=== PATIENT | male | born 1985 | race Caucasian/White ===

== ENCOUNTER 2017-04-15 20:03 | Emergency (ER) | payer OTHER ==
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
--- NOTE | 2017-04-15 21:21 | ED CLINICAL REPORT ---
Clinical Report - Physicians/Mid Levels [facility] [address] [place] [address] 04/15/2017 20:05 Patient: MADI DRISCOLL Time Seen: 20:32; initial patient contact, initial documentation, patient care assumed. Arrived- By private vehicle. Historian- patient. HISTORY OF PRESENT ILLNESS Chief Complaint: HEMORRHOIDS. This started several weeks ago and is still present but is better now. The patient has had rectal pain, constipation and hard stools but not had dark stools. He has had mild rectal bleeding described as bright red blood on toilet paper and blood streaks on stool. No nausea, vomiting, diarrhea or abdominal pain. (hemorrhoids better now after several days of using otc med, but bleeding hasn't stopped, today, wiped and again saw large amount of bright red blood on tissue, called his dr, has appt for 1 week, went to walk in clinic, but they wouldn't see him because of his insurance so he came here, the blood scared him). No recent travel. No known contact with a sick individual. Similar symptoms previously: Frequently, worse. Recent medical care: Not recently seen/assessed. REVIEW OF SYSTEMS No dizziness, weakness, fever, difficulty breathing or chest pain. No complaint of rectal foreign body. He has had no rectal intercourse. All systems otherwise negative, except as recorded above. PAST HISTORY See nurses notes. PROBLEMS: ADHD - Attention Deficit Hyperactivity Disorder. --20:36 Kiera Knowles, RRoman. ADDITIONAL SURGERIES: no known surgeries. SOCIAL HISTORY Never smoker. Occasional alcohol use. No drug use. No recent travel. FAMILY HISTORY Negative. ADDITIONAL NOTES The nursing notes have been reviewed with agreement regarding the chief complaint, HPI, ROS, PMH and patient medications and allergies. PHYSICAL EXAM Vital Signs: 04/15/2017 20:32 BP: 125/75. HR: 67. RR: 15. O2 saturation: 98%. Temp: 98.6 F. Pain level now: 6/10. Have been reviewed as normal and appear to be correct. Appearance: Alert. Oriented X3. No acute distress. Eyes: Pupils equal, round and reactive to light. Eyes normal inspection. Neck: Normal inspection. Neck supple. CVS: Normal heart rate and rhythm. Heart sounds normal. Pulses normal. Respiratory: No respiratory distress. Breath sounds normal. Abdomen: Soft and nontender. Bowel sounds normal. No organomegaly. No mass. Back: Normal inspection. Rectal: External hemorrhoids (deflated). Rectal exam normal and nontender. Stool heme negative; hemoccult quality management coordinator check passed. (POC test reference range: negative). Skin: Skin warm and dry. Normal skin color. No rash. Normal skin turgor. Extremities: Extremities exhibit normal ROM. No lower extremity edema. Neuro: Oriented X 3. No motor deficit. No sensory deficit. PROGRESS AND PROCEDURES Patient counseled in person regarding the patient's stable condition and diagnosis. Differential Diagnosis: Other possible considerations: hemorrhoids, gi bleed, fistula, abscess. Above considerations are based on history and physical exam. Differential diagnosis was discussed with patient. Disposition: Discharged home in good and unchanged condition (21:21). Condition: good and stable. CLINICAL IMPRESSION Prolapsed external hemorrhoids INSTRUCTIONS Do not work today. Warnings: GENERAL WARNINGS: Return or contact your physician immediately if your condition worsens or changes unexpectedly, if not improving as expected, or if other problems arise. Specifically return if problem worsens. Prescription Medications: Miralax: take 1 measuring cupful supplied (1 heaping tablespoon) mixed in 8 ounces liquid daily as needed for constipation. Dispense fourteen (14) ounce bottle. No refill. Substitution is permissible. Proctofoam HC: Insert one applicator full into the rectum every 12 hours as needed for pain, itching and irritation. Dispense one (1) cannister. No refills. Substitution is permissible. Follow-up: Follow up with your doctor in about one week as scheduled even if well. Summary of care provided to patient. Understanding of the discharge instructions verbalized by patient. (Electronically signed by Rajani Coley A.R.N.P. 04/15/2017 23:27)
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
--- NOTE | 2017-04-15 21:21 | ED CLINICAL REPORT ---
Clinical Report - Physicians/Mid Levels [facility] [address] [place] [address] 04/15/2017 20:05 Patient: MADI DRISCOLL Time Seen: 20:32; initial patient contact, initial documentation, patient care assumed. Arrived- By private vehicle. Historian- patient. HISTORY OF PRESENT ILLNESS Chief Complaint: HEMORRHOIDS. This started several weeks ago and is still present but is better now. The patient has had rectal pain, constipation and hard stools but not had dark stools. He has had mild rectal bleeding described as bright red blood on toilet paper and blood streaks on stool. No nausea, vomiting, diarrhea or abdominal pain. (hemorrhoids better now after several days of using otc med, but bleeding hasn't stopped, today, wiped and again saw large amount of bright red blood on tissue, called his dr, has appt for 1 week, went to walk in clinic, but they wouldn't see him because of his insurance so he came here, the blood scared him). No recent travel. No known contact with a sick individual. Similar symptoms previously: Frequently, worse. Recent medical care: Not recently seen/assessed. REVIEW OF SYSTEMS No dizziness, weakness, fever, difficulty breathing or chest pain. No complaint of rectal foreign body. He has had no rectal intercourse. All systems otherwise negative, except as recorded above. PAST HISTORY See nurses notes. PROBLEMS: ADHD - Attention Deficit Hyperactivity Disorder. --20:36 Kiera Knowles, RRoman. ADDITIONAL SURGERIES: no known surgeries. SOCIAL HISTORY Never smoker. Occasional alcohol use. No drug use. No recent travel. FAMILY HISTORY Negative. ADDITIONAL NOTES The nursing notes have been reviewed with agreement regarding the chief complaint, HPI, ROS, PMH and patient medications and allergies. PHYSICAL EXAM Vital Signs: 04/15/2017 20:32 BP: 125/75. HR: 67. RR: 15. O2 saturation: 98%. Temp: 98.6 F. Pain level now: 6/10. Have been reviewed as normal and appear to be correct. Appearance: Alert. Oriented X3. No acute distress. Eyes: Pupils equal, round and reactive to light. Eyes normal inspection. Neck: Normal inspection. Neck supple. CVS: Normal heart rate and rhythm. Heart sounds normal. Pulses normal. Respiratory: No respiratory distress. Breath sounds normal. Abdomen: Soft and nontender. Bowel sounds normal. No organomegaly. No mass. Back: Normal inspection. Rectal: External hemorrhoids (deflated). Rectal exam normal and nontender. Stool heme negative; hemoccult chemistry quality control analyst check passed. (POC test reference range: negative). Skin: Skin warm and dry. Normal skin color. No rash. Normal skin turgor. Extremities: Extremities exhibit normal ROM. No lower extremity edema. Neuro: Oriented X 3. No motor deficit. No sensory deficit. PROGRESS AND PROCEDURES Patient counseled in person regarding the patient's stable condition and diagnosis. Differential Diagnosis: Other possible considerations: hemorrhoids, gi bleed, fistula, abscess. Above considerations are based on history and physical exam. Differential diagnosis was discussed with patient. Disposition: Discharged home in good and unchanged condition (21:21). Condition: good and stable. CLINICAL IMPRESSION Prolapsed external hemorrhoids INSTRUCTIONS Do not work today. Warnings: GENERAL WARNINGS: Return or contact your physician immediately if your condition worsens or changes unexpectedly, if not improving as expected, or if other problems arise. Specifically return if problem worsens. Prescription Medications: Miralax: take 1 measuring cupful supplied (1 heaping tablespoon) mixed in 8 ounces liquid daily as needed for constipation. Dispense fourteen (14) ounce bottle. No refill. Substitution is permissible. Proctofoam HC: Insert one applicator full into the rectum every 12 hours as needed for pain, itching and irritation. Dispense one (1) cannister. No refills. Substitution is permissible. Follow-up: Follow up with your doctor in about one week as scheduled even if well. Summary of care provided to patient. Understanding of the discharge instructions verbalized by patient. (Electronically signed by Rajani Coley A.R.N.P. 04/15/2017 23:27)
--- NOTE | 2017-04-16 05:48 | ED DISCHARGE INSTRUCTIONS ---
Patient: MADI DRISCOLL General Instructions [facility] VisitID: [id number] [address] [place] [address] 31y, M Registration Date/Time: 04/15/2017 Prolapsed external hemorrhoids INSTRUCTIONS Do not work today. Warnings: GENERAL WARNINGS: Return or contact your physician immediately if your condition worsens or changes unexpectedly, if not improving as expected, or if other problems arise. Specifically return if problem worsens. Prescription Medications: Miralax: take 1 measuring cupful supplied (1 heaping tablespoon) mixed in 8 ounces liquid daily as needed for constipation. Dispense fourteen (14) ounce bottle. No refill. Substitution is permissible. Proctofoam HC: Insert one applicator full into the rectum every 12 hours as needed for pain, itching and irritation. Dispense one (1) cannister. No refills. Substitution is permissible. Follow-up: Follow up with your doctor in about one week as scheduled even if well. Summary of care provided to patient. Understanding of the discharge instructions verbalized by patient. ADDITIONAL INFORMATION Hemorrhoids,External A hemorrhoid is a local swelling of the veins around the rectum. These most often occur from repeated forceful straining during bowel movements or heavy lifting. It may also occur in the last few months of . A hemorrhoid feels like a soft lump. It may itch from time to time. When it is inflamed it becomes hard and very painful. Home Care: SITZ BATHS: Sit in a tub filled with about 6 inches of hot water. Allow the water to run in order to keep it hot for a total of 10-15 minutes. Repeat this three times a day until pain is relieved. Keep your stools soft to avoid the need to strain when having a bowel movement. Unless another medicine was prescribed, try the following: IF YOU ARE CONSTIPATED: You may use onbr-cgt-midraza laxatives such as MILK OF MAGNESIA (mild acting) or, DULCOLAX (if stronger action is needed). IF YOU ARE NOT CONSTIPATED but stools are hard, try taking Colace (docusate sodium) which is a stool softener. This will soften stools without producing diarrhea. Drinking extra fluids may also help. The use of creams applied to the hemorrhoid itself, such as ANUSOL or PREPARATION H, will be helpful to reduce pain and itching, and speed healing. Prevention: Avoid straining on the toilet by keeping stools soft. Increasing FIBER in your diet (fruits, cereals, vegetables and grains) will promote healthy bowel movement. If this is not working, you may use METAMUCIL and similar products. These are zgzu-vpv-qknwqcx fiber supplements. You must drink extra fluids when taking these to avoid constipation. Follow Up with your doctor if you do not begin to respond to the above treatment within the next few days. Get Prompt Medical Attention if any of the following occur: Large amount of rectal bleeding (more than 1 cup of blood in 24 hours) Increasing rectal pain or rectal pain that continues for more than three days of treatment Weakness, dizziness or fainting Vomiting blood (red or black color) Rectal Bleeding (Stable) Your exam today shows signs of blood in the stool. This is called rectal bleeding, because the blood passes through the rectum. However, the blood may not be coming from the rectum. Blood in the stool may be red or black in color. Red blood in the stool usually comes from the lower gastro-intestinal (GI) tract. This may be due to diverticulosis, polyps, colon inflammation or infection, anal fissure or hemorrhoids. In persons over 50 tumors and cancer of the intestinal tract may first show up as red blood in the stool. Upper GI bleeding causes the stool to turn black. This may occur with bleeding from the esophagus, stomach, duodenum or small intestine. Very small amounts of GI bleeding may not be visible and can only be discovered on a chemical test of the stool. You have not lost a large amount of blood and your condition appears stable at this time. It is very important to have a follow-up exam to determine the exact cause of your bleeding. Home Care: 1) You may resume normal activity as long as you feel well. 2) Avoid aspirin and anti-inflammatory drugs such as ibuprofen (Advil, Motrin) and naproxen (Aleve and Naprosyn). You may use acetaminophen (Tylenol) for pain. [ NOTE : If you have chronic liver disease, talk with your doctor before using acetaminophen.] 3) Avoid alcohol. Follow Up with your doctor or as advised by our medical staff. It is very important that you have further tests done to find the cause of your bleeding. Get Prompt Medical Attention if any of the following occur: -- Large amount of rectal bleeding (more than 1 cup of blood in 24 hours) -- Increasing abdominal pain -- Weakness, dizziness or fainting -- Vomiting blood (red or black color) High Fiber Diet Fiber is present in all fruits, vegetables, cereals and grains. Fiber passes through the body undigested. A high fiber diet helps food move through the intestinal tract. The added bulk is helpful in preventing constipation. In people with diverticulosis it serves to clean out the pouches along the colon wall while preventing new ones from forming. A high fiber diet also reduces the risk of colon cancer, decreases blood cholesterol and prevents high blood sugar in people with diabetes. The foods listed below are high in fiber and should be included in your diet. If you are not used to high fiber foods, start with 1 or 2 foods from this list. Every 3-4 days add a new one to your diet until you are eating 4 high fiber foods per day. This should give you 20-35 Gm of fiber/day. It is also important to drink a lot of water when you are on this diet (6-8 glasses a day). Water causes the fiber to swell and increases the benefit. Foods High In Dietary Fiber: BREADS: Made with 100% whole wheat flour; guanaco, wheat or rye crackers; tortillas, bran muffins CEREALS: Whole grain cereal with bran (Chex, Raisin Bran, [place] Bran), oatmeal, rolled oats, granola, wheat flakes, brown rice NUTS: Any nuts FRUITS: All fresh fruits along with edible skins, (bananas, citrus fruit, mangoes, pears, prunes, raisins, apples, pineapple, apricot, melon, jams and marmalades), fruit juices (especially prune juice) VEGETABLES: All types, preferably raw or lightly cooked: especially, celery, eggplant, potatoes,spinach, broccoli, brussel sprouts, winter squash, carrots, cauliflower, soybeans, lentils, fresh and dried beans of all kinds OTHER: Popcorn, any spices You have been given the following additional information: Hemorrhoids Rectal Bleed, Stable Diet, High Fiber Do not work today. (Electronically signed by Rajani Coley A.R.N.P. 04/15/2017 23:27)
--- NOTE | 2017-04-16 05:48 | ED MED RECONCILIATION SUMMARY ---
Patient: MADI DRISCOLL Medication Reconciliation Report [facility] VisitID: [id number] [address] [place] [address] 31y, M Registration Date/Time: 04/15/2017 Weight: 65.7 kg Height/Length: 68 in. BMI: 22.0 ALLERGIES: None The patient's Home Medications are listed below: NONE. The source(s) of the original Home Medication information: Not obtained. The following Medications were given to the patient in the Emergency Department: None. The following Medications were prescribed to the patient: Miralax: take 1 measuring cupful supplied (1 heaping tablespoon) mixed in 8 ounces liquid daily as needed for constipation. Dispense fourteen (14) ounce bottle. No refill. Substitution is permissible. -- Rajani Coley, A.R.N.P. Proctofoam HC: Insert one applicator full into the rectum every 12 hours as needed for pain, itching and irritation. Dispense one (1) cannister. No refills. Substitution is permissible. -- Rajani Coley, A.R.N.P.
--- NOTE | 2017-04-16 05:48 | ED MAR SUMMARY ---
..... Medication Administration Record [facility] [address], [place] [id number] Patient: MADI DRISCOLL Visit ID: [id number] 31y, M Weight: 65.7 kg Height/Length: 68 in BMI: 22 ALLERGIES: None
--- NOTE | 2017-04-16 05:48 | ED MAR SUMMARY ---
..... Medication Administration Record [facility] [address] [place], [place] [id number] Patient: MADI DRISCOLL Visit ID: [id number] 31y, M Weight: 65.7 kg Height/Length: 68 in BMI: 22 ALLERGIES: None
--- NOTE | 2017-04-16 05:48 | ED MED RECONCILIATION SUMMARY ---
Patient: MADI DRISCOLL Medication Reconciliation Report [facility] VisitID: [id number] [address] [place] [address] 31y, M Registration Date/Time: 04/15/2017 Weight: 65.7 kg Height/Length: 68 in. BMI: 22.0 ALLERGIES: None The patient's Home Medications are listed below: NONE. The source(s) of the original Home Medication information: Not obtained. The following Medications were given to the patient in the Emergency Department: None. The following Medications were prescribed to the patient: Miralax: take 1 measuring cupful supplied (1 heaping tablespoon) mixed in 8 ounces liquid daily as needed for constipation. Dispense fourteen (14) ounce bottle. No refill. Substitution is permissible. -- Rajani Coley, A.R.N.P. Proctofoam HC: Insert one applicator full into the rectum every 12 hours as needed for pain, itching and irritation. Dispense one (1) cannister. No refills. Substitution is permissible. -- Rajani Coley, A.R.N.P.
== END 2017-04-15 21:53 | disposition home or self-care (01) ==
LOC: ED SRH 20:03
DX: K64.8 Other hemorrhoids (principal)